=== PATIENT | female | born 1970 | race Caucasian/White ===

== ENCOUNTER 2020-10-16 16:23 | Emergency (ER) | payer MEDICAID ==
[~2020-10-16] VITALS: Ht 157.5 cm; Wt 82.0 kg
[2020-10-16] MEDS ORDERED: ASPI-986 PO (16:35)
[2020-10-16] MEDS ORDERED: ATOR10TA PO (16:35)
[2020-10-16] MEDS ORDERED: DIVA250T4 PO (16:35)
[2020-10-16] MEDS ORDERED: METO-396 PO (16:35)
[2020-10-16] MEDS ORDERED: LORAZEPAM 2MG/ML CPJ IV ONE (17:00)
[2020-10-16] MEDS ORDERED: SODIUM CHLORIDE 0.9% 1,000 ML IV ONE (17:00)
[2020-10-16 17:08] VITALS: BP 133/78
== END 2020-10-16 17:10 | disposition left against medical advice (07) ==
LOC: ER 16:23
DX: R07.9 Chest pain, unspecified (principal); R00.2 Palpitations; E11.9 Type 2 diabetes mellitus without complications; E78.00 Pure hypercholesterolemia, unspecified; G35 Multiple sclerosis; I10 Essential (primary) hypertension; R56.9 Unspecified convulsions; Z88.6 Allergy status to analgesic agent; Z79.82 Long term (current) use of aspirin; Z86.73 Personal history of transient ischemic attack (TIA), and cerebral infarction without residual deficits; Z86.711 Personal history of pulmonary embolism
CPT/HCPCS: 71045; 93005; 99283; J7030

== ENCOUNTER 2020-10-17 16:30 | Emergency (ER) | payer MEDICAID ==
[~2020-10-17] VITALS: Ht 157.5 cm; Wt 81.0 kg
[~2020-10-17 16:30] MED LIST: ASPI-986 PO; ATOR10TA PO; DIVA250T4 PO; METO-396 PO
[2020-10-17] MEDS ORDERED: ACETAMINOPHEN 325MG TABLET PO STA (17:04)
[2020-10-17 18:02] LABS: BASOPHILS % 0.3 % (0.0-2.0); EOSINOPHILS % 1.1 % (0.0-5.0); HEMATOCRIT. 32.7 % (36.0-48.0); HEMOGLOBIN. 10.4 g/dL (12.0-16.0); LYMPHOCYTES % 18.4 % (20.0-50.0); MEAN PLATELET VOLUME 7.3 fl (7.4-10.4); MONOCYTES % 8.2 % (2.0-8.0); PLATELET 341 x1000/uL (130-400); RED BLOOD CELL COUNT 4.53 mill/uL (4.2-5.4); RED CELL DISTRIBUTION WIDTH 17.9 % (11.6-14.6)
[2020-10-17 18:05] LABS: CHLORIDE 107 mEq/L (98-107)
[2020-10-17] MEDS ORDERED: SODIUM CHLORIDE 0.9% 500 ML IV ONE (18:15)
[2020-10-17] MEDS ORDERED: OXYCODONE HCL/ACETAMINOPHEN 5/325MG TABLET PO ONE (20:00)
[2020-10-17 20:49] VITALS: BP 123/69
== END 2020-10-17 20:52 | disposition home or self-care (01) ==
LOC: ER 16:30
DX: R07.89 Other chest pain (principal); E78.00 Pure hypercholesterolemia, unspecified; E11.9 Type 2 diabetes mellitus without complications; Z88.6 Allergy status to analgesic agent; Z79.82 Long term (current) use of aspirin; Z98.890 Other specified postprocedural states
CPT/HCPCS: 36415; 71045; 80053; 84484; 85025; 85379; 93005; 96360; 99285